=== PATIENT | male | born 1955 | race Hispanic/Latino ===

== ENCOUNTER → 2017-05-03 | Outpatient (CLI) | payer SELFPAY | END | disposition home or self-care (01) | LOC: YCFC.O 07:00 | DX: E11.9 Type 2 diabetes mellitus without complications (principal) ==

== ENCOUNTER → 2017-12-16 | Outpatient (CLI) | payer OTHER | LOC: YCFC.O 06:59 | DX: E11.9 Type 2 diabetes mellitus without complications (principal) ==

== ENCOUNTER → 2018-03-23 | Outpatient (CLI) | payer OTHER | LOC: YCFC.O 16:52 | PROVIDERS: ATTEND Family Medicine | DX: E11.9 Type 2 diabetes mellitus without complications (principal); R94.4 Abnormal results of kidney function studies ==

== ENCOUNTER → 2019-05-01 | Outpatient (CLI) | payer MEDICARE | LOC: RAD 06:50 | PROVIDERS: ATTEND Family Medicine | DX: Z00.00 Encounter for general adult medical examination without abnormal findings (principal); E11.9 Type 2 diabetes mellitus without complications; I10 Essential (primary) hypertension; E78.5 Hyperlipidemia, unspecified; R53.83 Other fatigue; Z13.220 Encounter for screening for lipoid disorders; Z12.5 Encounter for screening for malignant neoplasm of prostate | CPT/HCPCS: 36415; 80053; 80061; 81001; 82043; 82570; 83036; 84443; 85025; G0103 ==

== ENCOUNTER → 2019-08-29 | Outpatient (CLI) | payer MEDICARE | DX: R97.20 Elevated prostate specific antigen [PSA] (principal) ==

== ENCOUNTER → 2020-01-31 | Outpatient (CLI) | payer MEDICARE | LOC: LAB.O 06:40 | PROVIDERS: ATTEND Family Medicine | DX: E11.9 Type 2 diabetes mellitus without complications (principal) ==

== ENCOUNTER 2020-03-29 15:10 | Emergency (ER) | payer MEDICARE ==
[2020-03-29] MEDS ORDERED: POVIDONE IODINE 10 % 15 ML UD TOP ONE (15:35)
[2020-03-29] MEDS ORDERED: MORPHINE SULFATE INJ 10 MG/ML VIAL IM ONE (15:52)
[2020-03-29] MEDS ORDERED: TETANUS,DIPHTHERIA,PERTUSSIS 1 EA SYG IM ONE (15:52)
[2020-03-29] MEDS ORDERED: LIDOCAINE 1% 10 ML VIAL INJ ONE ×2 (15:57→16:26)
--- NOTE | 2020-03-29 17:07 | ED.PDOC ---
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 denies any other injuries. Unsure when last tetanus Home Medications: Ambulatory Orders Clindamycin HCl [Cleocin] 300 mg PO Q8H #21 capsule 03/29/20 Review of Systems - Review of Systems Constitutional: Denies: chills, fever EENTM: Denies: blurred vision Respiratory: Denies: cough, short of breath Cardiology: Denies: chest pain, palpitations Gastrointestinal/Abdominal: Denies: abdominal pain, diarrhea, nausea Genitourinary: Denies: dysuria, frequency Musculoskeletal: Denies: joint pain, joint swelling, muscle pain, muscle stiffness, neck pain Skin: States: see HPI Neurological: Denies: headache, paresthesia, tingling Endocrine: Denies: unexplained weight gain, unexplained weight loss Hematologic/Lymphatic: Denies: easy bleeding, easy bruising Past Medical History (General) - Patient Medical History Hx Seizures: No Hx Stroke: No Hx Diabetes: Yes Hx Renal Disease: No Hx Cancer: No Hx of HIV: No Hx Hepatitis B: No Hx Hepatitis C: No Hx MRSA: No Physical Exam - Physical Exam General Appearance: Alert, Comfortable, No apparent distress, Well Developed, Well Groomed, Well Hydrated, Well Nourished Eyes, Ears, Nose, Throat Exam: normal ENT inspection Neck: non-tender, full range of motion, supple, normal inspection Cardiovascular/Chest: normal peripheral pulses, regular rate, rhythm, no edema, no gallop, no JVD, no murmur Respiratory: chest non-tender, lungs clear, normal breath sounds, no respiratory distress, no accessory muscle use Gastrointestinal/Abdominal: normal bowel sounds, non tender, soft, no organomegaly Back Exam: normal inspection Extremity: normal range of motion, non-tender, no pedal edema, no calf tenderness, normal capillary refill 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 also 1 cm lac on lateral mid 4th finger. medial nailbed laceration on 2nd right finger. Comments: Symmetrically palpable radial and ulnar pulses. Capillary refill <2 seconds to all digits. Intact sensation to light touch of the radial, median and ulnar nerves 2 point discrimination intact Intact motor function of the radial, median and ulnar nerves demonstrated by strength of extension of the isolated distal joint of the index finger, hand suction plate roller hand, and spreading of the 2nd through 5th digits. Intact recurrent median nerve as demonstrated by ability to move thumb fully through opposition, abduction and flexion. no eivdence of tendon injury full flexion and extension of lacerated fingers.. No snuffbox tenderness. Progress - Progress Progress: 03/29/20 17:24 after the wound was soaked in betadine, it was irrigated with saline. aprox 12 ml of 1% lidocaine without epi was given. 4 sutures applied to 2nd digit on medial aspect of nail bed. a total of 14 sutures on 4th digit (12 on medial large irregular laceration, and 2 on lateral mid 4th digit). patient tolerated well. post suture instructions given with use of odd piece checker. patient tolerated procedure well. Procedures - Laceration/Wound Repair Right Finger Wound Length (cm): 500 Wound's Depth, Shape: irregular, flap, contused tissue Betadine Prep?: Yes Anesthesia: 1% Lidocaine Volume Anesthetic (cc's): 9 Wound Debrided: moderate Wound Repaired With: sutures Suture Size/Type: 4:0, prolene Number of Sutures: 12 Progress: a total of three lacerations largest with 12 sutures, simple interrupted. Departure - Departure Clinical Impression: Laceration of finger Qualifiers: Encounter type: initial encounter Finger: ring finger Damage to nail status: with damage Foreign body presence: without foreign body Laterality: right Qualified Code(s): S61.314A - Laceration without foreign body of right ring finger with damage to nail, initial encounter Time of Disposition: 17:06 Disposition: Discharge to Home or Self Care Instructions: Wound Care, Laceration Repair With Stitches (DC), Common Finger Injuries (DC) Referrals: Dariel Andujar MD [Primary Care Provider] - 1-5 Days Prescriptions: Clindamycin HCl [Cleocin] 300 mg PO Q8H #21 capsule Home Medications: Ambulatory Orders Clindamycin HCl [Cleocin] 300 mg PO Q8H #21 capsule 10/09/20 Print Language: Yi
[2020-03-29 18:13] VITALS: O2SAT 98
[2020-03-29 18:28] VITALS: BP 136/77; TEMP 98
== END 2020-03-29 17:43 | disposition home or self-care (01) ==
LOC: ER 15:10
DX: S61.314A Laceration without foreign body of right ring finger with damage to nail, initial encounter (principal); S61.310A Laceration without foreign body of right index finger with damage to nail, initial encounter; E11.9 Type 2 diabetes mellitus without complications; W28.XXXA Contact with powered lawn mower, initial encounter; Y92.9 Unspecified place or not applicable
CPT/HCPCS: 90471; 90715; J2270

== ENCOUNTER → 2020-04-26 | Outpatient (CLI) | payer MEDICARE | LOC: YCFC.O 07:02 | PROVIDERS: ATTEND Family Medicine | DX: E11.9 Type 2 diabetes mellitus without complications (principal) ==

== ENCOUNTER → 2020-07-29 | Outpatient (CLI) | payer MEDICARE | LOC: YCFC.O 06:50 | PROVIDERS: ATTEND Family Medicine | DX: E11.9 Type 2 diabetes mellitus without complications (principal) ==